=== PATIENT | male | born 1955 | race Caucasian/White ===

== ENCOUNTER 2018-05-16 07:34 | Emergency (ER) | payer SELFPAY ==
[~2018-05-16] VITALS: Ht 177.8 cm; Wt 90.0 kg
[2018-05-16 07:37] VITALS: BP 0/0
[2018-05-16] MEDS ORDERED: DEXTROSE 50% WATER 50ML SYRINGE IV ONE (14:50)
[2018-05-16] MEDS ORDERED: CALCIUM CHLORIDE 1GM/10ML SYR IV ONE (14:50)
[2018-05-16] MEDS ORDERED: EPINEPHRINE 0.1MG/ML (1:10,000) 10ML SYR ONE (14:50)
[2018-05-16] MEDS ORDERED: SODIUM BICARBONATE 7.5% 0.9 MEQ/ML 50ML SYR IV ONE (14:50)
== END 2018-05-16 10:10 | disposition expired ==
LOC: ER 07:34
DX: I46.9 Cardiac arrest, cause unspecified (principal)
CPT/HCPCS: 92950; 99285; J3490; 99283